=== PATIENT | female | born 2005 | race Caucasian/White ===

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

== ENCOUNTER → 2025-03-17 | Outpatient (REF) | payer BC | LOC: M SFHCPLAZ 12:00 | PROVIDERS: ATTEND Student in an Organized Health Care Education/Training Program | DX: Z53.9 Procedure and treatment not carried out, unspecified reason (principal) ==

== ENCOUNTER → 2025-10-29 | Outpatient (REF) | payer BC | LOC: M SFHCPLAZ 15:29 | PROVIDERS: ATTEND Family Medicine | DX: Z00.00 Encounter for general adult medical examination without abnormal findings (principal) ==